=== PATIENT | male | born 1990 | race African-American/Black ===

== ENCOUNTER 2020-04-25 01:31 | Emergency (ER) | payer SELFPAY ==
[~2020-04-25] VITALS: Ht 180.3 cm; Wt 62.0 kg
[2020-04-25 01:33] VITALS: BP 112/66
== END 2020-04-25 01:47 | disposition home or self-care (01) ==
LOC: ED 01:40
DX: R53.83 Other fatigue (principal); F17.200 Nicotine dependence, unspecified, uncomplicated; Z72.9 Problem related to lifestyle, unspecified
CPT/HCPCS: 99281